=== PATIENT | male | born 1945 | race Caucasian/White ===

== ENCOUNTER 2017-03-03 20:56 | Emergency (ER) | payer MEDICARE, OTHER ==
[~2017-03-03] VITALS: Ht 170.2 cm; Wt 86.2 kg
[~2017-03-03 20:56] MED LIST: DIABETES MEDICATION PO
[2017-03-03 21:02] VITALS: BP 153/90
[2017-03-03] MEDS ORDERED: NACL 0.9% 1,000 ML IV ONE (21:45)
[2017-03-03 21:56] LABS: BASOPHILS % (AUTO) 0.2 % (0.0-2.0); EOSINOPHILS # (AUTO) 0.3 K/uL (0-0.4); EOSINOPHILS % (AUTO) 2.5 % (0.0-4.0); HEMATOCRIT 44.6 % (36-52); LYMPHOCYTES # (AUTO) 0.6 K/uL (2.0-11.5); LYMPHOCYTES % (AUTO) 4.5 % (20.5-51.1); MEAN CORPUSCULAR HEMOGLOBIN 29 pg (27-31); MEAN CORPUSCULAR HGB CONC 34 g/dL (33-37); MEAN CORPUSCULAR VOLUME 87 fL (80-94); MONOCYTES # (AUTO) 0.2 K/uL (0.8-1.0); MONOCYTES % (AUTO) 1.9 % (1.7-9.3); NEUTROPHILS # (AUTO) 11.7 K/uL (1.8-7.7); NEUTROPHILS % (AUTO) 90.9 % (42.2-75.2); PLATELET COUNT (AUTO) 323 K/uL (140-450); RED BLOOD CELL COUNT(AUTO) 5.12 MIL/uL (4.20-6.10); RED CELL DISTRIBUTION WIDTH 12.1 % (11.6-13.7); WHITE BLOOD COUNT (AUTO) 12.8 K/uL (4.8-10.8)
[2017-03-03] MEDS: ASPIRIN 81 MG TAB.CHEW PO ONE (22:03)
[2017-03-03 22:20] LABS: INR 1.1 (0.8-1.2); PARTIAL THROMBOPLASTIN TIME 26.1 secs (22-35.6); PROTHROMBIN TIME 10.2 secs (10.8-13.4)
[2017-03-03] MEDS: ONDANSETRON 4 MG/2 ML VIAL IVP ONE (22:28)
[2017-03-03 22:30] LABS: ALANINE AMINOTRANSFERASE 22 U/L (12-78); ALBUMIN 3.7 g/dL (3.4-5.0); ALKALINE PHOSPHATASE 128 U/L (46-116); ANION GAP 16.6 (8-16); ASPARTATE AMINOTRANSFERASE 17 U/L (15-37); CALCIUM 8.7 mg/dL (8.5-10.1); CARBON DIOXIDE 22.5 mmol/L (21-32); CHLORIDE 102 mmol/L (98-107); CREATININE 0.9 mg/dL (0.6-1.3); GLUCOSE 238 mg/dL (74-106); POTASSIUM 4.1 mmol/L (3.5-5.1); SODIUM SERUM 137 mmol/L (136-145); TOTAL BILIRUBIN 0.6 mg/dL (0.0-1.0); TOTAL PROTEIN, SERUM 7.8 g/dL (6.4-8.2); UREA NITROGEN, BLOOD 12 mg/dL (7-18)
[2017-03-03] MEDS: KETOROLAC 30 MG/ML VIAL IVP ONE (22:33)
[2017-03-03] MEDS: NACL 0.9% 1,000 ML IV ONE (22:40)
[2017-03-03 23:18] VITALS: BP 142/89
== END 2017-03-03 23:18 | disposition home or self-care (01) ==
LOC: MED 20:56
DX: K52.9 Noninfective gastroenteritis and colitis, unspecified (principal); J18.9 Pneumonia, unspecified organism; I10 Essential (primary) hypertension; I25.2 Old myocardial infarction; E11.9 Type 2 diabetes mellitus without complications
CPT/HCPCS: 36415; 71010; 74020; 80053; 83690; 84484; 85025; 85610; 85730; 93005; 96361; 96374; 96375; 99285; J1885; J2405; J7030

== ENCOUNTER 2018-08-22 21:59 | Emergency (ER) | payer MEDICARE, OTHER ==
[~2018-08-22] VITALS: Ht 165.1 cm; Wt 82.1 kg
[2018-08-22 22:06] VITALS: BP 169/99
[2018-08-22] MEDS ORDERED: MECL-272 PO (22:13)
--- NOTE | 2018-08-22 22:16 | NUR ---
Pt sent to ER lobby to wait for a bed, accompanied by family. Steady gait noted without assistance.
--- NOTE | 2018-08-23 00:26 | NUR ---
Pt ambulated to bed 4.
--- NOTE | 2018-08-23 00:31 | NUR ---
PATIENT PRESENTS TO ED WITH C/O [place], DIZZINESS, AND BLURRED VISION X 1 MONTH. PT STATES THIS HAS BEEN ON AND OFF X 1 MONTH. PATIENT DENIES ANY FALL/TRAUMA, NO INJURIES. ONLY MEDICAL HX IS HX .PT DENIES N/V/D; SKIN IS PINK/WARM/DRY; AAOX4 WITH EVEN AND STEADY GAIT; LUNGS CLEAR BL; HR EVEN AND REGULAR; PT DENIES ANY FEVER, CP, SOB, OR COUGH AT THIS TIME; PATIENT STATES PAIN OF 8/10 AT THIS TIME; VSS; PATIENT POSITIONED FOR COMFORT; HOB ELEVATED; BEDRAILS UP X2; BED DOWN. ER MD MADE AWARE OF PT STATUS.
--- NOTE | 2018-08-23 01:58 | NUR ---
Dr. Charlton evaluating patient at bedside.
[2018-08-23] MEDS ORDERED: DIAZEPAM 5 MG TAB PO ONE (02:10)
[2018-08-23 03:03] LABS: BASOPHILS % (AUTO) 0.7 % (0.0-2.0); EOSINOPHILS # (AUTO) 0.3 K/uL (0-0.4); EOSINOPHILS % (AUTO) 4.4 % (0.0-4.0); HEMATOCRIT 42.7 % (36-52); HEMOGLOBIN 14.6 g/dL (12.0-18.0); LYMPHOCYTES # (AUTO) 3.5 K/uL (2.0-11.5); LYMPHOCYTES % (AUTO) 49.6 % (20.5-51.1); MEAN CORPUSCULAR HEMOGLOBIN 30 pg (27-31); MEAN CORPUSCULAR HGB CONC 34 g/dL (33-37); MEAN CORPUSCULAR VOLUME 88.7 fL (80-94); MONOCYTES # (AUTO) 0.5 K/uL (0.8-1.0); MONOCYTES % (AUTO) 7.6 % (1.7-9.3); NEUTROPHILS # (AUTO) 2.7 K/uL (1.8-7.7); NEUTROPHILS % (AUTO) 37.7 % (42.2-75.2); PLATELET COUNT (AUTO) 313 K/uL (140-450); RED BLOOD CELL COUNT(AUTO) 4.81 MIL/uL (4.20-6.10); RED CELL DISTRIBUTION WIDTH 12.8 % (11.6-13.7); WHITE BLOOD COUNT (AUTO) 7.1 K/uL (4.8-10.8)
[2018-08-23 03:20] LABS: ALBUMIN 3.7 g/dL (3.4-5.0); CHLORIDE 103 mmol/L (98-107); GLUCOSE 207 mg/dL (74-106); POTASSIUM 4.3 mmol/L (3.5-5.1); SODIUM SERUM 138 mmol/L (136-145); TOTAL BILIRUBIN 0.3 mg/dL (0.0-1.0); UREA NITROGEN, BLOOD 14 mg/dL (7-18)
[2018-08-23 03:21] LABS: PROTHROMBIN TIME 9.9 secs (10.8-13.4)
[2018-08-23 03:22] LABS: APPEARANCE,URINE CLEAR (CLEAR); BILIRUBIN,URINE NEGATIVE (NEGATIVE); BLOOD, URINE NEGATIVE (NEGATIVE); COLOR,URINE YELLOW (YELLOW); LEUKOCYTE ESTERASE ,URINE NEGATIVE (NEGATIVE); NITRITE, URINE NEGATIVE (NEGATIVE); UGLUCOSE 4+ (NEGATIVE)
[2018-08-23 03:23] LABS: RBC,URINE 0-5 (RARE) /HPF (0-5); WBC,URINE 0-5 (RARE) /HPF (0-5)
[2018-08-23 03:32] LABS: CHOL/HDL RATIO 9.9 (1-4.5)
[2018-08-23 03:37] LABS: ANION GAP 12.2 (8-16); ASPARTATE AMINOTRANSFERASE 9 U/L (15-37); CARBON DIOXIDE 27.1 mmol/L (21-32)
--- NOTE | 2018-08-23 04:39 | NUR ---
Dr. Charlton re-evaluating patient at bedside.
[2018-08-23 04:55] VITALS: BP 142/87
--- NOTE | 2018-08-23 04:55 | NUR ---
Patient discharged with v/s stable. Written and verbal after care instructions given and explained. Patient alert, oriented and verbalized understanding of instructions. Ambulatory with steady gait. All questions addressed prior to discharge. ID band removed. Patient advised to follow up with PMD. Rx of norco and valium given. Patient educated on indication of medication including possible reaction and side effects. Opportunity to ask questions provided and answered.
== END 2018-08-23 04:55 | disposition home or self-care (01) ==
LOC: MED 21:59
DX: H81.03 Meniere's disease, bilateral (principal); E11.9 Type 2 diabetes mellitus without complications; I10 Essential (primary) hypertension; Z79.899 Other long term (current) drug therapy
CPT/HCPCS: 36415; 70450; 80053; 81001; 82948; 83880; 84484; 85025; 85610; 85730; 93005; 99285

== ENCOUNTER 2019-12-15 09:07 | Emergency (ER) | payer OTHER, MEDICAID ==
[~2019-12-15] VITALS: Ht 170.2 cm; Wt 78.5 kg
[~2019-12-15 09:07] MED LIST changes: +MECL-303 PO
--- NOTE | 2019-12-15 09:17 | NUR ---
PT TO ER BED 11
[2019-12-15 09:18] VITALS: BP 124/74
--- NOTE | 2019-12-15 09:52 | NUR ---
SUDDEN ONSET OF N/V/D LAST NIGHT. C/O FATIGUE, GENERALIZED WEAKNESS, LOWER BACK PAIN. ADMITS EATING AT A RESTAURANT LAST NIGHT. BED IN LOW POSITION, SIDE RAIL UP X 1. WILL CONTINUE TO MONITOR.
[2019-12-15] MEDS: NACL 0.9% 1,000 ML IV ONE (10:12)
[2019-12-15] MEDS: ONDANSETRON 4 MG/2 ML VIAL IVP ONE (10:15)
[2019-12-15 10:18] LABS: BASOPHILS % (AUTO) 0.4 % (0.0-2.0); EOSINOPHILS # (AUTO) 0.1 K/uL (0-0.4); EOSINOPHILS % (AUTO) 1.3 % (0.0-4.0); HEMATOCRIT 41.4 % (36-52); HEMOGLOBIN 14.4 g/dL (12.0-18.0); LYMPHOCYTES # (AUTO) 0.8 K/uL (2.0-11.5); LYMPHOCYTES % (AUTO) 6.8 % (20.5-51.1); MEAN CORPUSCULAR HEMOGLOBIN 30 pg (27-31); MEAN CORPUSCULAR HGB CONC 35 g/dL (33-37); MEAN CORPUSCULAR VOLUME 86.7 fL (80-94); MONOCYTES # (AUTO) 0.3 K/uL (0.8-1.0); MONOCYTES % (AUTO) 2.6 % (1.7-9.3); NEUTROPHILS # (AUTO) 9.9 K/uL (1.8-7.7); NEUTROPHILS % (AUTO) 88.9 % (42.2-75.2); PLATELET COUNT (AUTO) 324 K/uL (140-450); RED BLOOD CELL COUNT(AUTO) 4.78 MIL/uL (4.20-6.10); WHITE BLOOD COUNT (AUTO) 11.2 K/uL (4.8-10.8)
[2019-12-15] MEDS: KETOROLAC 30 MG/ML VIAL IVP ONE (10:18)
--- NOTE | 2019-12-15 10:21 | NUR ---
PT TO CT VIA WC
[2019-12-15 10:42] LABS: ANION GAP 9.7 (8-16); ASPARTATE AMINOTRANSFERASE 19 U/L (15-37); CARBON DIOXIDE 30.4 mmol/L (21-32); CHLORIDE 104 mmol/L (98-107); CREATININE 1.1 mg/dL (0.6-1.3); GLUCOSE 211 mg/dL (74-106); POTASSIUM 4.1 mmol/L (3.5-5.1); SODIUM SERUM 140 mmol/L (136-145); TOTAL BILIRUBIN 0.7 mg/dL (0.0-1.0); UREA NITROGEN, BLOOD 18 mg/dL (7-18)
--- NOTE | 2019-12-15 12:20 | NUR ---
IV removed, catheter intact and site benign. Applied folded 4x4 gauze and tape to stop bleeding.
[2019-12-15 12:21] VITALS: BP 119/55
--- NOTE | 2019-12-15 12:21 | NUR ---
Patient discharged with v/s stable. Written and verbal after care instructions given and explained. Patient alert, oriented and verbalized understanding of instructions. Ambulatory with steady gait. All questions addressed prior to discharge. ID band removed. Patient advised to follow up with PMD. Rx of ZOFRAN, MOTRIN given. Patient educated on indication of medication including possible reaction and side effects. Opportunity to ask questions provided and answered.
== END 2019-12-15 12:21 | disposition home or self-care (01) ==
LOC: MED 09:07
DX: A08.4 Viral intestinal infection, unspecified (principal); I11.0 Hypertensive heart disease with heart failure; E11.9 Type 2 diabetes mellitus without complications; E78.00 Pure hypercholesterolemia, unspecified; Z79.899 Other long term (current) drug therapy
CPT/HCPCS: 36415; 74176; 80053; 85025; 96361; 96374; 96375; 99284; J1885; J2405; J7030

== ENCOUNTER 2020-04-27 19:10 | Emergency (ER) | payer OTHER, MEDICAID, SELFPAY ==
[~2020-04-27] VITALS: Ht 170.2 cm; Wt 78.5 kg
[2020-04-27 19:34] VITALS: BP 154/73
[2020-04-27 20:34] VITALS: BP 154/73
== END 2020-04-27 20:34 | disposition home or self-care (01) ==
LOC: EEVIPCON 19:10 → MED 19:10
DX: U07.1 COVID-19 (principal); E11.9 Type 2 diabetes mellitus without complications; R50.9 Fever, unspecified; M19.90 Unspecified osteoarthritis, unspecified site
CPT/HCPCS: 99283; U0003

== ENCOUNTER 2020-09-06 11:49 | Emergency (ER) | payer OTHER, MEDICAID ==
[~2020-09-06] VITALS: Ht 170.2 cm; Wt 77.1 kg
[2020-09-06 12:08] VITALS: BP 137/80
[2020-09-06 12:57] LABS: BASOPHILS # (AUTO) 0.1 K/uL (0.00-0.22); BASOPHILS % (AUTO) 0.6 % (0.0-2.0); EOSINOPHILS # (AUTO) 1.4 K/uL (0-0.4); HEMATOCRIT 44.2 % (36-52); HEMOGLOBIN 14.5 g/dL (12.0-18.0); LYMPHOCYTES # (AUTO) 6.7 K/uL (2.0-11.5); LYMPHOCYTES % (AUTO) 43.6 % (20.5-51.1); MEAN CORPUSCULAR HEMOGLOBIN 29 pg (27-31); MEAN CORPUSCULAR HGB CONC 33 g/dL (33-37); MEAN CORPUSCULAR VOLUME 88.6 fL (80-94); MONOCYTES # (AUTO) 0.7 K/uL (0.8-1.0); MONOCYTES % (AUTO) 4.4 % (1.7-9.3); NEUTROPHILS # (AUTO) 6.5 K/uL (1.8-7.7); NEUTROPHILS % (AUTO) 42.4 % (42.2-75.2); PLATELET COUNT (AUTO) 371 K/uL (140-450); RED BLOOD CELL COUNT(AUTO) 4.98 MIL/uL (4.20-6.10); RED CELL DISTRIBUTION WIDTH 13.7 % (11.6-13.7); WHITE BLOOD COUNT (AUTO) 15.3 K/uL (4.8-10.8)
--- NOTE | 2020-09-06 13:34 | NUR ---
W/C ASSIST TO BED 11
--- NOTE | 2020-09-06 13:37 | NUR ---
PT TAKEN TO BED 11.
[2020-09-06 13:54] LABS: ANION GAP 14.7 (8-16); CARBON DIOXIDE 26.9 mmol/L (21-32); CHLORIDE 101 mmol/L (98-107); CREATININE 0.9 mg/dL (0.6-1.3); GLUCOSE 356 mg/dL (74-106); POTASSIUM 3.6 mmol/L (3.5-5.1); SODIUM SERUM 139 mmol/L (136-145); UREA NITROGEN, BLOOD 13 mg/dL (7-18)
[2020-09-06 13:57] LABS: ALBUMIN 3.3 g/dL (3.4-5.0); ASPARTATE AMINOTRANSFERASE 21 U/L (15-37); LIPASE 222 U/L (73-393); TOTAL BILIRUBIN 0.4 mg/dL (0.0-1.0)
--- NOTE | 2020-09-06 14:06 | NUR ---
75 y/o male C/O LEFT FLANK PAIN X 1 MONTH AND WORSENING. DENIES N/V, FEVER, DYSURIA. WAS DX WITH COVID IN APRIL, RE-TESTED NEGATIVE IN JUNE 16. ON 5L NC SINCE COVID DX. HX- DM, LUNG PROBLEM POST COVID NKA
[2020-09-06] MEDS ORDERED: KETOROLAC 60 MG/2 ML VIAL IM ONE (16:00)
[2020-09-06 16:55] VITALS: BP 137/80
--- NOTE | 2020-09-06 16:55 | NUR ---
Patient discharged with v/s stable. Written and verbal after care instructions given and explained. Patient alert, oriented and verbalized understanding of instructions. Carried with steady gait. All questions addressed prior to discharge. ID band removed. Patient advised to follow up with PMD. Rx of cipro 500mg tab BID PO, azithromycin 250mg 2 tabs day 1 and 1 tab day 2-5 PO, and motrin 800mg TID PO PRN pain/fever given. Patient educated on indication of medication including possible reaction and side effects. Opportunity to ask questions provided and answered.
== END 2020-09-06 16:55 | disposition home or self-care (01) ==
LOC: MED 11:49
DX: N39.0 Urinary tract infection, site not specified (principal); J18.9 Pneumonia, unspecified organism; E11.9 Type 2 diabetes mellitus without complications; I10 Essential (primary) hypertension; I51.89 Other ill-defined heart diseases; Z79.899 Other long term (current) drug therapy
CPT/HCPCS: 36415; 74176; 80053; 81002; 83690; 85025; 96372; 99284; J1885

== ENCOUNTER 2021-02-27 10:02 | Emergency (ER) | payer OTHER, MEDICAID ==
[~2021-02-27] VITALS: Ht 170.2 cm; Wt 71.7 kg
[~2021-02-27 10:02] MED LIST changes: +AZIT250T11 PO; -DIABETES MEDICATION PO; -MECL-303 PO
[2021-02-27 10:15] VITALS: BP 138/84
--- NOTE | 2021-02-27 10:22 | NUR ---
Patient to bed 10. RN evaluating the patient at bedside.
--- NOTE | 2021-02-27 10:31 | NUR ---
Dr. Junior is evaluating patient at bedside.
--- NOTE | 2021-02-27 10:40 | NUR ---
75 y/o M brought in from home by family with c/c urinary burning. Patient presents A&Ox4, ambulatory, Pashto speaking and states urinary burning since last night. Patient presents with abdominal distention/round/soft. Pt denies any other symptoms; N/V/D, chest pain, SOB, fever/chills. Pt placed onto head of quality. VSS. Bed locked in lowest position, side rails x 1. Dr. Junior at bedside with US. AccuChek 201. PMH: HTN NKA
--- NOTE | 2021-02-27 10:40 | NUR ---
# 16 FR Conway catheter with 10 ml utilizing sterile technique. Immediate return of 1025 ml clear/yellow urine noted. Bedside drainage bag placed below level of bladder. Urine sample collected and sent to lab. Pt tolerated procedure well.
--- NOTE | 2021-02-27 10:43 | NUR ---
Lab at bedside.
--- NOTE | 2021-02-27 10:43 | NUR ---
Urine sample collected from Conway catheter, given to CPT Christopher at ER bedside.
[2021-02-27 10:56] LABS: BASOPHILS # (AUTO) 0.1 K/uL (0.00-0.22); BASOPHILS % (AUTO) 0.6 % (0.0-2.0); EOSINOPHILS # (AUTO) 0.6 K/uL (0-0.4); EOSINOPHILS % (AUTO) 4.3 % (0.0-4.0); HEMATOCRIT 44.4 % (36-52); HEMOGLOBIN 14.7 g/dL (12.0-18.0); LYMPHOCYTES # (AUTO) 4.3 K/uL (2.0-11.5); LYMPHOCYTES % (AUTO) 31.3 % (20.5-51.1); MEAN CORPUSCULAR HEMOGLOBIN 29 pg (27-31); MEAN CORPUSCULAR HGB CONC 33 g/dL (33-37); MEAN CORPUSCULAR VOLUME 88.6 fL (80-94); MONOCYTES # (AUTO) 1.1 K/uL (0.8-1.0); MONOCYTES % (AUTO) 8.1 % (1.7-9.3); NEUTROPHILS # (AUTO) 7.7 K/uL (1.8-7.7); NEUTROPHILS % (AUTO) 55.7 % (42.2-75.2); PLATELET COUNT (AUTO) 346 K/uL (140-450); RED CELL DISTRIBUTION WIDTH 13.8 % (11.6-13.7); WHITE BLOOD COUNT (AUTO) 13.8 K/uL (4.8-10.8)
[2021-02-27 11:06] LABS: CARBON DIOXIDE 25.6 mmol/L (21-32); CHLORIDE 103 mmol/L (98-107); GLUCOSE 201 mg/dL (74-106); POTASSIUM 3.6 mmol/L (3.5-5.1); SODIUM SERUM 140 mmol/L (136-145); UREA NITROGEN, BLOOD 17 mg/dL (7-18)
[2021-02-27 11:10] LABS: BILIRUBIN,URINE NEGATIVE (NEGATIVE); BLOOD, URINE 3+ (NEGATIVE); COLOR,URINE YELLOW (YELLOW); LEUKOCYTE ESTERASE ,URINE NEGATIVE (NEGATIVE); NITRITE, URINE NEGATIVE (NEGATIVE); PH,URINE 6.5 (5.0-9.0); UGLUCOSE 1+ (NEGATIVE)
[2021-02-27 11:26] LABS: APPEARANCE,URINE CLEAR (CLEAR); WBC,URINE 0-5 /HPF (0-5)
--- NOTE | 2021-02-27 11:33 | NUR ---
Dr. Junior is evaluating patient at bedside.
--- NOTE | 2021-02-27 11:59 | NUR ---
Dr. Junior is evaluating the patient at bedside with tire center manager.
--- NOTE | 2021-02-27 12:04 | NUR ---
Female Credit Card Interviewer accompanied patient for Rectal Exam.
[2021-02-27] MEDS ORDERED: NACL 0.9% 500 ML IV ONE (12:05)
--- NOTE | 2021-02-27 12:30 | NUR ---
Family at bedside. Demonstrated to and niece how to use urinary leg bag. Pt and family successfully demonstrated use.
[2021-02-27] MEDS ORDERED: TAMS0.4C96 PO (12:45)
[2021-02-27] MEDS ORDERED: CIPR500T4 PO (12:45)
[2021-02-27 12:51] VITALS: BP 157/59
--- NOTE | 2021-02-27 12:52 | NUR ---
Patient discharged with v/s stable. Written and verbal after care instructions given and explained. Patient alert, oriented and verbalized understanding of instructions. Ambulatory with steady gait. All questions addressed prior to discharge. ID band removed. Patient advised to follow up with PMD. Rx of CIPRO AND TAMULOSIN given. Patient educated on indication of medication including possible reaction and side effects. Opportunity to ask questions provided and answered.
--- NOTE | 2021-02-28 20:45 | NUR ---
LATE ENTRY- NORMAL SALINE 0.9% DISCONTINUED AT 1320
[2021-03-01] MEDS ORDERED: CHOL500040 PO (16:58)
[2021-03-01] MEDS ORDERED: BENA20TA PO (16:58)
[2021-03-01] MEDS ORDERED: APIX5TAB PO (16:58)
[2021-03-01] MEDS ORDERED: ESCI20TA PO (16:58)
[2021-03-01] MEDS ORDERED: CIPR500T4 PO (16:58)
[2021-03-01] MEDS ORDERED: ASPI-1822 PO (16:58)
[2021-03-01] MEDS ORDERED: ATOR40TA PO (16:58)
[2021-03-01] MEDS ORDERED: METF1000 PO (16:58)
== END 2021-02-27 12:52 | disposition home or self-care (01) ==
LOC: MED 10:02
DX: R33.9 Retention of urine, unspecified (principal); N39.0 Urinary tract infection, site not specified; E11.9 Type 2 diabetes mellitus without complications; Z20.822 Contact with and (suspected) exposure to COVID-19
CPT/HCPCS: 36415; 51702; 80048; 81001; 85025; 87086; 96360; 99284

== ENCOUNTER 2021-02-27 21:06 | Emergency (ER) | payer OTHER, MEDICAID ==
[~2021-02-27] VITALS: Ht 170.2 cm; Wt 71.7 kg
[~2021-02-27 21:06] MED LIST changes: +CIPR500T4 PO; +TAMS0.4C96 PO
[2021-02-27 21:15] VITALS: BP 149/83
--- NOTE | 2021-02-27 21:15 | NUR ---
SEEN HERE THIS AM FOR DIFFICULTY AND PAINFUL URINATION. F/C WAS PLACED AND ATTACHED TO LEG BAG. PT RETURNS NOW WITH C/O PAINFUL URINATION, HEMATURIA, PASSING CLOTS. F/C DRAINING RED URINE, SMALL CLOTS ARE NOTED. PMH: HEMATURIA NKDA
--- NOTE | 2021-02-27 21:15 | NUR ---
PT AMBULATED TO BED 11.
--- NOTE | 2021-02-27 21:20 | NUR ---
ERMD AT BEDSIDE
--- NOTE | 2021-02-27 21:30 | NUR ---
F/C CONTINUES WITH SMALL CLOTS, ATTEMPT TO IRRIGATE, UNABLE.
--- NOTE | 2021-02-27 21:50 | NUR ---
F/C D/C'D . NEW F/C INSERTED WITHOUT DIFFICULTY AND IMMEDIATE RETURN RED URINE. IRRIGATED X 1 WITH RETURN OF PINK COLORED URINE.
--- NOTE | 2021-02-27 22:30 | NUR ---
READY FOR DISCHARGE CALL TO [facility] REGARDING DISCHARGE. [facility] WILL BE HERE TO [facility]IST PT
[2021-02-27 22:50] VITALS: BP 149/83
--- NOTE | 2021-02-27 22:50 | NUR ---
Patient discharged with v/s stable. Written and verbal after care instructions given and explained. Patient verbalized understanding. Ambulatory with steady gait. All questions addressed prior to discharge. Advised to follow up with PMD.
[2021-03-01] MEDS ORDERED: METF1000 PO (16:58)
[2021-03-01] MEDS ORDERED: BENA20TA PO (16:58)
[2021-03-01] MEDS ORDERED: CHOL500040 PO (16:58)
[2021-03-01] MEDS ORDERED: CIPR500T4 PO (16:58)
[2021-03-01] MEDS ORDERED: ESCI20TA PO (16:58)
[2021-03-01] MEDS ORDERED: ATOR40TA PO (16:58)
[2021-03-01] MEDS ORDERED: ASPI-1822 PO (16:58)
[2021-03-01] MEDS ORDERED: APIX5TAB PO (16:58)
[2021-03-03] MEDS ORDERED: TAMS0.4C96 PO (13:21)
[2021-03-03] MEDS ORDERED: FINA5TAB5 PO (13:21)
== END 2021-02-27 22:50 | disposition home or self-care (01) ==
LOC: MED 21:06
DX: T83.098A Other mechanical complication of other urinary catheter, initial encounter (principal); R31.9 Hematuria, unspecified; E11.9 Type 2 diabetes mellitus without complications; I10 Essential (primary) hypertension
CPT/HCPCS: 51702; 99284

== ENCOUNTER 2021-04-29 13:53 | Emergency (ER) | payer OTHER, MEDICAID ==
[~2021-04-29] VITALS: Ht 170.2 cm; Wt 68.0 kg
[~2021-04-29 13:53] MED LIST changes: +APIX5TAB PO; +ASPI-1822 PO; +ATOR40TA PO; -AZIT250T11 PO; +BENA20TA PO; +CHOL500040 PO; -CIPR500T4 PO; +ESCI20TA PO; +FINA5TAB5 PO; +METF1000 PO
[2021-04-29 14:31] VITALS: BP 133/81
[2021-04-29] MEDS ORDERED: NACL 0.9% 1,000 ML IV ONE (15:05)
--- NOTE | 2021-04-29 15:23 | NUR ---
76/M brought to ED with c/o diarrhea. Patient states he has been having reoccurring diarrhea with o relief for 3 days. Daughter at bedside, states patient had "prostate surgery" one week ago and was placed on antibiotics. Patient states he took pepto and "another diarrhea medication" both with no relief. Patient denies nausea, vomiting, chest pain or shortness of breath. Patient on 2L of oxygen continuously, patient placed in gown on bedside floor and wall applier liquid. Patient alert and oriented x4, answering questions appropriately.
[2021-04-29 15:36] LABS: BASOPHILS # (AUTO) 0.1 K/uL (0.00-0.22); BASOPHILS % (AUTO) 0.8 % (0.0-2.0); EOSINOPHILS # (AUTO) 0.2 K/uL (0-0.4); EOSINOPHILS % (AUTO) 1.8 % (0.0-4.0); HEMATOCRIT 39.7 % (36-52); LYMPHOCYTES # (AUTO) 4.5 K/uL (2.0-11.5); LYMPHOCYTES % (AUTO) 39.6 % (20.5-51.1); MEAN CORPUSCULAR HEMOGLOBIN 29 pg (27-31); MEAN CORPUSCULAR HGB CONC 33 g/dL (33-37); MEAN CORPUSCULAR VOLUME 89.4 fL (80-94); MONOCYTES # (AUTO) 0.6 K/uL (0.8-1.0); MONOCYTES % (AUTO) 5.2 % (1.7-9.3); NEUTROPHILS % (AUTO) 52.6 % (42.2-75.2); PLATELET COUNT (AUTO) 453 K/uL (140-450); RED BLOOD CELL COUNT(AUTO) 4.44 MIL/uL (4.20-6.10); RED CELL DISTRIBUTION WIDTH 14.1 % (11.6-13.7); WHITE BLOOD COUNT (AUTO) 11.3 K/uL (4.8-10.8)
[2021-04-29 16:01] LABS: ALBUMIN 3.6 g/dL (3.4-5.0); ANION GAP 17.6 (8-16); ASPARTATE AMINOTRANSFERASE 16 U/L (15-37); CHLORIDE 107 mmol/L (98-107); CREATININE 1.3 mg/dL (0.6-1.3); GLUCOSE 202 mg/dL (74-106); POTASSIUM 4.6 mmol/L (3.5-5.1); SODIUM SERUM 143 mmol/L (136-145); TOTAL BILIRUBIN 0.3 mg/dL (0.0-1.0); UREA NITROGEN, BLOOD 20 mg/dL (7-18)
--- NOTE | 2021-04-29 17:11 | NUR ---
STOOL SAMPLE COLLECTED AND WALKED TO LAB.
--- NOTE | 2021-04-29 18:45 | NUR ---
Lab stated more stool needed for stool sample, patient notified to alert us when ready to try.
--- NOTE | 2021-04-29 19:25 | NUR ---
CALLED LAB S/W DEVI WHO STATED ALL LABS FOR STOOL SAMPLE SUCH WBC, C. DIFF, ETC WERE A SEND OUT. DR. CHRISTIANSON MADE AWARE.
--- NOTE | 2021-04-29 19:30 | NUR ---
Pt report given to Viky. Transfer of care at this time.
--- NOTE | 2021-04-29 19:45 | NUR ---
GIVEN STOOL SAMPLE TO LAB, HANDED TO DEVI. [facility]VI RECIVED STOOL SAMPLE
--- NOTE | 2021-04-29 19:48 | NUR ---
CALLED PER DR. CHRISTIANSON REQUEST; LINE TRANSFERRED AT THIS TIME.
[2021-04-29 20:38] VITALS: BP 132/75
== END 2021-04-29 20:40 | disposition home or self-care (01) ==
LOC: MED 13:53
DX: R19.7 Diarrhea, unspecified (principal); R10.9 Unspecified abdominal pain; R42 Dizziness and giddiness; E11.9 Type 2 diabetes mellitus without complications; I10 Essential (primary) hypertension; Z79.899 Other long term (current) drug therapy; Z79.82 Long term (current) use of aspirin; Z79.84 Long term (current) use of oral hypoglycemic drugs
CPT/HCPCS: 36415; 80053; 85025; 87045; 87070; 87427; 89055; 96360; 99285; J7030

== ENCOUNTER 2021-09-05 12:51 | Emergency (ER) | payer OTHER, MEDICAID ==
[~2021-09-05] VITALS: Ht 170.2 cm; Wt 72.6 kg
--- NOTE | 2021-09-05 13:07 | NUR ---
PT TAKEN TO ER BED 11 VIA W/C.
[2021-09-05] MEDS ORDERED: ASPIRIN 325 MG TAB ONE (13:13)
[2021-09-05] MEDS ORDERED: ENOXAPARIN 80 MG/0.8 ML SYR SUBQ ONE (13:20)
[2021-09-05 13:21] VITALS: BP 153/77
--- NOTE | 2021-09-05 13:26 | NUR ---
76 Y/O MALE BIB C/O CHEST PAIN 07/27 DESCRIBES PRESSURE RADIATING TO LEFT ARM X1HR WHILE IN THE SHOWER. PT DENIES N/V, DENIES FEVER/CHILLS. PMH: DM, HTN, HLD, AND CHRONIC PAIN NKA Addendum: 09/05/21 at 1327 by [email or web address] PT USES HOME O2 2L NC.
--- NOTE | 2021-09-05 13:27 | NUR ---
CHICKEN BONER AT PT BEDSIDE.
--- NOTE | 2021-09-05 13:27 | NUR ---
IV ESTABLISHED BILATERAL AC 18G, GOOD BLOOD RETURN, COLLECTED LABS, GAVE TO TELMA MILNER TECH AT [facility].
[2021-09-05] MEDS ORDERED: ASPIRIN 325 MG TAB PO ONE (13:35)
[2021-09-05] MEDS ORDERED: NACL 0.9% 1,000 ML IV ONE (13:35)
--- NOTE | 2021-09-05 13:39 | NUR ---
GAVE REPORT TO AMELIA DIAZ AT [facility]. ETA [facility] TO US 10MIN.
[2021-09-05 13:51] VITALS: BP 149/87
--- NOTE | 2021-09-05 13:52 | NUR ---
Patient to be transferred to [facility] ER. Is being transferred due to HIGHER LEVEL OF CARE. Receiving facility has accepting physician and available space. ER physician has signed transfer form. Patient or responsible alliance party has agreed to transfer and signed form. Patient belongings inventoried and will be sent with patient. Copy of nursing notes, lab reports, EKG, Physicians Orders and X-rays to be sent with patient. Report called to AMELIA DIAZ at receiving facility. [facility] ambulance service has been called for transfer. ETA is 10MINUTES.
[2021-09-05 14:03] LABS: BASOPHILS # (AUTO) 0.1 K/uL (0.00-0.22); BASOPHILS % (AUTO) 0.6 % (0.0-2.0); EOSINOPHILS # (AUTO) 0.5 K/uL (0-0.4); EOSINOPHILS % (AUTO) 2.6 % (0.0-4.0); HEMATOCRIT 44.4 % (36-52); HEMOGLOBIN 14.5 g/dL (12.0-18.0); LYMPHOCYTES # (AUTO) 7.5 K/uL (2.0-11.5); LYMPHOCYTES % (AUTO) 38.3 % (20.5-51.1); MEAN CORPUSCULAR HEMOGLOBIN 29 pg (27-31); MEAN CORPUSCULAR HGB CONC 33 g/dL (33-37); MEAN CORPUSCULAR VOLUME 87.8 fL (80-94); MONOCYTES # (AUTO) 0.9 K/uL (0.8-1.0); MONOCYTES % (AUTO) 4.5 % (1.7-9.3); NEUTROPHILS # (AUTO) 10.5 K/uL (1.8-7.7); PLATELET COUNT (AUTO) 371 K/uL (140-450); RED BLOOD CELL COUNT(AUTO) 5.06 MIL/uL (4.20-6.10); RED CELL DISTRIBUTION WIDTH 14.7 % (11.6-13.7); WHITE BLOOD COUNT (AUTO) 19.5 K/uL (4.8-10.8)
[2021-09-05 14:32] LABS: PROTHROMBIN TIME 10.1 secs (10.8-13.4)
[2021-09-05 15:02] LABS: CARBON DIOXIDE 23.6 mmol/L (21-32); CHLORIDE 104 mmol/L (98-107); CREATININE 1.1 mg/dL (0.6-1.3); GLUCOSE 197 mg/dL (74-106); POTASSIUM 3.6 mmol/L (3.5-5.1); SODIUM SERUM 142 mmol/L (136-145); UREA NITROGEN, BLOOD 19 mg/dL (7-18)
[2021-09-05 15:17] LABS: ALBUMIN 3.8 g/dL (3.4-5.0); ASPARTATE AMINOTRANSFERASE 22 U/L (15-37); TOTAL BILIRUBIN 0.5 mg/dL (0.0-1.0)
[2021-09-05 15:25] LABS: CREATINE KINASE MB 1.2 ng/mL (0-3.6)
== END 2021-09-05 13:52 | disposition short-term general hospital (02) ==
LOC: MED 12:51
DX: I21.3 ST elevation (STEMI) myocardial infarction of unspecified site (principal); E11.9 Type 2 diabetes mellitus without complications; I10 Essential (primary) hypertension; Z98.890 Other specified postprocedural states; Z79.84 Long term (current) use of oral hypoglycemic drugs; Z79.82 Long term (current) use of aspirin; Z79.899 Other long term (current) drug therapy
CPT/HCPCS: 36415; 71045; 80053; 82550; 82553; 84484; 85025; 85384; 85610; 85730; 86886; 86900; 86901; 93005; 96372; 99285; J1650; Q0092; J7030

== ENCOUNTER 2022-09-06 12:06 | Emergency (ER) | payer OTHER, MEDICAID ==
[~2022-09-06] VITALS: Ht 170.2 cm; Wt 74.4 kg
[~2022-09-06 12:06] MED LIST changes: +METF-1274 PO; -METF1000 PO
[2022-09-06 12:18] VITALS: BP 150/86
--- NOTE | 2022-09-06 12:22 | NUR ---
AMBULATED TO BED 6
--- NOTE | 2022-09-06 13:29 | NUR ---
77YO MALE PT C/O ABSCESS X4DAYS. PRESENTS WITH 2in ABSCESS MID R BACK. REDDENED SWELLING NOTED AROUND. 10/10 TENDER TO TOUCH. NO ACTIVE DRAINAGE AT THIS TIME. STATES DECREASE IN SIZE AFTER ATTEMPTING TO DRAIN AT HOME, UNSURE OF PUSS COLOR. NOTES REOCCURING S/S EVERY YEAR W/ RELIEF AFTER SELF DRAINING . DENIES N/V/D, CHEST PAIN, FEVER OR CHILLS. PT AAOX4, LAYING L SIDE RECUMBANT. ON 1L VIA NC AT BASELINE . RESPIRATIONS EVEN AND UNLABORED. [place] SPEAKING HX:HTN, DIABETES NKA
--- NOTE | 2022-09-06 13:39 | NUR ---
COURTNEY MOODY AT BEDSIDE FOR EVALUATION
[2022-09-06] MEDS ORDERED: HYDROcodone/APAP 5/325 MG 1 TAB TAB PO ONE (13:45)
[2022-09-06] MEDS ORDERED: LIDOCAINE MPF 1% 10 MG/ML VIAL INJ ONE (13:45)
[2022-09-06] MEDS ORDERED: CEPH-588 PO (14:44)
--- NOTE | 2022-09-06 14:53 | NUR ---
BULKY DRESSING AND 3 NON ADHERENTS APPLIED.
[2022-09-06 15:04] VITALS: BP 146/87
--- NOTE | 2022-09-06 15:04 | NUR ---
Patient discharged with v/s stable. Written and verbal after care instructions FOR SKIN ABSCESS given and explained. Patient alert, oriented and verbalized understanding of instructions. Wheel Chair Assisted with to car. All questions addressed prior to discharge. ID band removed. Patient advised to follow up with PMD. Rx of KEFLEX given. Opportunity to ask questions provided and answered.
== END 2022-09-06 15:04 | disposition home or self-care (01) ==
LOC: MED 12:06
DX: L02.212 Cutaneous abscess of back [any part, except buttock and flank] (principal); E11.9 Type 2 diabetes mellitus without complications; I10 Essential (primary) hypertension; Z79.899 Other long term (current) drug therapy; Z79.2 Long term (current) use of antibiotics; Z79.82 Long term (current) use of aspirin; Z79.01 Long term (current) use of anticoagulants
CPT/HCPCS: 10060; 99284; J2001

== ENCOUNTER 2022-09-08 10:21 | Emergency (ER) | payer OTHER, MEDICAID ==
[~2022-09-08] VITALS: Ht 170.2 cm; Wt 75.1 kg
[~2022-09-08 10:21] MED LIST changes: +CEPH-588 PO
[2022-09-08 10:44] VITALS: BP 157/57
--- NOTE | 2022-09-08 10:48 | NUR ---
Rip clark in [facility] - 09/08/22 at 1052 by [email or web address] Patient being evaluated by DR GRECO at bedside.
--- NOTE | 2022-09-08 10:48 | NUR ---
Patient being evaluated by DR GRECO at TRIAGE ROOM.
[2022-09-08] MEDS ORDERED: SULFAMETH/TRIMETH DS 800/160MG 1 TAB PO ONE (11:25)
[2022-09-08] MEDS ORDERED: SULF-59 PO (11:27)
--- NOTE | 2022-09-08 12:02 | NUR ---
Patient discharged with v/s stable. Written and verbal after care instructions given and explained for Wound Packing, Wound Care (adult). Patient alert, oriented and verbalized understanding of instructions. Wheel Chair Assisted with by caregiver. All questions addressed prior to discharge. ID band removed. Patient advised to follow up with PMD. Rx of Bactrim Ds given. Patient educated on indication of medication including possible reaction and side effects. Opportunity to ask questions provided and answered.
== END 2022-09-08 12:02 | disposition home or self-care (01) ==
LOC: MED 10:21
DX: L02.212 Cutaneous abscess of back [any part, except buttock and flank] (principal); L03.312 Cellulitis of back [any part except buttock and flank]; E11.9 Type 2 diabetes mellitus without complications; I10 Essential (primary) hypertension; Z79.899 Other long term (current) drug therapy; Z79.82 Long term (current) use of aspirin; Z79.84 Long term (current) use of oral hypoglycemic drugs
CPT/HCPCS: 99283

== ENCOUNTER 2022-09-13 22:21 | Emergency (ER) | payer OTHER, MEDICAID ==
[~2022-09-13] VITALS: Ht 170.2 cm; Wt 74.8 kg
[~2022-09-13 22:21] MED LIST changes: +SULF-59 PO
[2022-09-13 22:32] VITALS: BP 187/95
--- NOTE | 2022-09-13 22:41 | NUR ---
Dr. Mckee examining patient,.
[2022-09-13] MEDS ORDERED: MORPHINE SULFATE 4 MG/ML SYR IVP ONE (23:20)
[2022-09-13] MEDS ORDERED: ONDANSETRON 4 MG/2 ML VIAL IVP ONE (23:20)
[2022-09-13 23:34] LABS: BASOPHILS # (AUTO) 0.1 K/uL (0.00-0.22); BASOPHILS % (AUTO) 0.6 % (0.0-2.0); EOSINOPHILS # (AUTO) 0.7 K/uL (0-0.4); EOSINOPHILS % (AUTO) 6.4 % (0.0-4.0); HEMATOCRIT 39.3 % (36-52); HEMOGLOBIN 13.1 g/dL (12.0-18.0); LYMPHOCYTES % (AUTO) 45.3 % (20.5-51.1); MEAN CORPUSCULAR HEMOGLOBIN 29 pg (27-31); MEAN CORPUSCULAR HGB CONC 33 g/dL (33-37); MEAN CORPUSCULAR VOLUME 88.1 fL (80-94); MONOCYTES # (AUTO) 0.9 K/uL (0.8-1.0); MONOCYTES % (AUTO) 8.3 % (1.7-9.3); NEUTROPHILS # (AUTO) 4.3 K/uL (1.8-7.7); NEUTROPHILS % (AUTO) 39.4 % (42.2-75.2); PLATELET COUNT (AUTO) 334 K/uL (140-450); RED BLOOD CELL COUNT(AUTO) 4.46 MIL/uL (4.20-6.10); RED CELL DISTRIBUTION WIDTH 13.6 % (11.6-13.7)
[2022-09-13 23:50] LABS: ALBUMIN 3.3 g/dL (3.4-5.0); ANION GAP 12.5 (8-16); ASPARTATE AMINOTRANSFERASE 20 U/L (15-37); CARBON DIOXIDE 28.7 mmol/L (21-32); CHLORIDE 101 mmol/L (98-107); CREATININE 1.5 mg/dL (0.6-1.3); GLUCOSE 223 mg/dL (74-106); LIPASE 182 U/L (73-393); POTASSIUM 4.2 mmol/L (3.5-5.1); SODIUM SERUM 138 mmol/L (136-145); TOTAL BILIRUBIN 0.2 mg/dL (0.0-1.0); UREA NITROGEN, BLOOD 21 mg/dL (7-18)
--- NOTE | 2022-09-13 23:53 | NUR ---
PT TAKEN TO CHAIR A
--- NOTE | 2022-09-14 00:47 | NUR ---
Patient taken to CT scan via WC.
--- NOTE | 2022-09-14 01:05 | NUR ---
PT RETURN FROM CT
[2022-09-14 03:06] LABS: APPEARANCE,URINE CLEAR (CLEAR); BILIRUBIN,URINE NEGATIVE (NEGATIVE); BLOOD, URINE NEGATIVE (NEGATIVE); COLOR,URINE YELLOW (YELLOW); LEUKOCYTE ESTERASE ,URINE NEGATIVE (NEGATIVE); NITRITE, URINE NEGATIVE (NEGATIVE); UGLUCOSE NEGATIVE (NEGATIVE)
[2022-09-14 04:47] VITALS: BP 187/95
== END 2022-09-14 04:47 | disposition home or self-care (01) ==
LOC: MED 22:21
DX: R10.32 Left lower quadrant pain (principal); I10 Essential (primary) hypertension; E11.9 Type 2 diabetes mellitus without complications; Z79.4 Long term (current) use of insulin; Z79.899 Other long term (current) drug therapy
CPT/HCPCS: 36415; 74177; 80053; 81003; 83605; 83690; 85025; 96374; 96375; 99285; J2270; J2405; Q9967